=== PATIENT | male | born 1985 | race Caucasian/White ===

== ENCOUNTER 2016-12-04 13:31 | Emergency (ER) | payer SELFPAY ==
--- NOTE | 2016-12-15 17:46 | ER ---
ADMIT: 12/04/2016 RM/LOC: ER [facility] MR#: [id number] [address] [facility] [address] NOE QUILES [address] [place] [address] Emergency Room Report SEX: M AGE: 31 : 1985 DATE: 12/04/2016 This patient comes to the ER because two days ago he lost his balance when he was coming down from stairs and twisted his ankle. He is unable to bear weight. X-ray showed a left fibula fracture. I placed him in an OCL splint. He should ice and elevate. We did teach him how to use crutches here in the emergency room, and we will have him follow up with Dr. Christianson next week. Please see my T-sheet. HUAN Lo / Morgan Joaquin MD / pippal JOB #: [id number] CC: Morgan Joaquin MD, Attending Physician
== END 2016-12-04 15:21 | disposition home or self-care (01) ==
LOC: ER 13:31
DX: S82.432A Displaced oblique fracture of shaft of left fibula, initial encounter for closed fracture (principal); Z79.82 Long term (current) use of aspirin; W10.9XXA Fall (on) (from) unspecified stairs and steps, initial encounter; Y92.009 Unspecified place in unspecified non-institutional (private) residence as the place of occurrence of the external cause

== ENCOUNTER 2017-03-09 02:38 | Emergency (ER) | payer SELFPAY ==
--- NOTE | 2017-03-09 07:08 | ER ---
ADMIT: 03/09/2017 RM/LOC: ER [facility] MR#: [id number] [address] [facility] [address] NOE QUILES [address] [place] [address] Emergency Room Report SEX: M AGE: 31 : 1985 DATE: 03/09/2017 The patient is a 31-year-old male in police custody after being tased for obstruction of justice. The patient sustained re-injury to his left ankle previous fracture. Able to ambulate well. Abrasions noted from taser and fall. Wounds were cleansed and treated with bacitracin. DTaP updated. Follow up Dr. Mccord as needed. Released in police custody. Aroldo Bronson MD/ helene JOB #: [id number] CC: Aroldo Bronson MD, Attending Physician Leti Mccord MD, Family Physician Leti Mccord MD
== END 2017-03-09 02:50 | disposition home or self-care (01) ==
LOC: ER 02:38
DX: S90.512A Abrasion, left ankle, initial encounter (principal); F17.210 Nicotine dependence, cigarettes, uncomplicated; Y35.91XA Legal intervention, means unspecified, law enforcement official injured, initial encounter